=== PATIENT | female | born 1935 | race Caucasian/White ===

== ENCOUNTER 2019-08-08 10:37 | Emergency (ER) | payer MEDICARE, OTHER ==
[2019-08-08 10:50] VITALS: BP 141/77
--- NOTE | 2019-08-08 12:19 | UC ---
Skin Complaint HPI - HPI Summary HPI Summary: PT HAS BEEN ON PLAQUENIL FOR ABOUT 4 WEEKS. ABOUT 5 DAYS AGO NOTICED A RASH ON TRUNK. 2 DAYS AGO RED SPOTS ON BOTH LEGS. MILDLY ITCHY BUT NOT PAINFUL. NO SWELLING OR FEVER. NO RESPIRATORY INVOLVEMENT OR DIFFICULTY BREATHING. NO TONGUE SWELLING. STATES HER BOTTOM LIP FEELS A BIT SWOLLEN. TOOK 2 BENADRYL LAST NIGHT - NO CHANGE. - History of Current Complaint Chief Complaint: UCRash Time Seen by Provider: 08/08/19 10:43 Stated Complaint: ALLERGIC REACTION RASH Hx Obtained From: Patient Onset/Duration: Gradual Onset, Lasting Days, Still Present Timing: Constant Onset Severity: Moderate Current Severity: Moderate Pain Intensity: 0 Pain Scale Used: 0-10 Numeric Location: Diffuse Character: Redness Aggravating Factor(s): Nothing Alleviating Factor(s): Nothing Associated Signs & Symptoms: Positive: Rash. Negative: Nausea, Fever, Cough, Wheezing, Chest Pain, Hoarseness, Throat Tightening, Tenderness - Allergy/Home Medications Allergies/Adverse Reactions: Allergies Allergy/AdvReac Type Severity Reaction Status Date / Time hydroxychloroquine Allergy Rash Verified 08/08/19 10:50 [From Plaquenil] Home Medications: Home Medications Areds 1 tab PO DAILY 08/27/15 [History] Aspirin [Aspirin Low Dose] 81 mg PO DAILY 08/27/15 [History Confirmed 08/08/19] Calcium Carbonate-Cholecalcife [Calcium 600 + D 600-200 mg-Unit] 1 tab PO DAILY 08/27/15 [History Confirmed 08/08/19] Glucosamine-Chondroitin [Glucosamine & Chondroitin 500-400 mg] 1 cap PO DAILY [History Confirmed 08/08/19] Magnesium Sulfate 70 mg PO DAILY 08/27/15 [History Confirmed 08/08/19] Davey-3/Dha/Epa/Fish Oil [Fish Oil 1,000 mg Softgel] 1,000 mg PO DAILY 08/27/15 [History Confirmed 08/08/19] Tumeric 1 cap PO DAILY 08/27/15 [History Confirmed 08/08/19] Ubidecarenone [Co Q-10] 30 mg PO DAILY 08/27/15 [History Confirmed 08/08/19] Acyclovir* [Zovirax 400 MG TAB*] 400 mg PO 5ID #35 tab 08/08/19 [Rx] L.acidoph,Paracasei, B.lactis [Probiotic] 1 cap PO DAILY 08/08/19 [History Confirmed 08/08/19] PMH/Surg Hx/FS Hx/Imm Hx - Additional Past Medical History Additional PMH: RHEUMATOID ARTHRITIS - Surgical History Surgical History: Yes Surgery Procedure, Year, and Place: 3 C SECTIONS - [facility]. INGUINAL HERNIA REPAIR. Lt ARM - FX W/ PLATE. knee replacement - Family History Known Family History: Positive: None - Social History Alcohol Use: Daily Substance Use Type: None Smoking Status (MU): Never Smoked Tobacco Review of Systems All Other Systems Reviewed And Are Negative: Yes Constitutional: Positive: Negative Skin: Positive: Rash Respiratory: Positive: Negative Cardiovascular: Positive: Negative Gastrointestinal: Positive: Negative Musculoskeletal: Positive: Negative Physical Exam Triage Information Reviewed: Yes Appearance: Well-Appearing, No Pain Distress, Well-Nourished Vital Signs: Initial Vital Signs Temp 98.8 F 08/08/19 10:44 Pulse 72 08/08/19 10:44 Resp 18 08/08/19 10:44 BP 141/77 08/08/19 10:44 Pulse Ox 98 08/08/19 10:44 Vital Signs Reviewed: Yes Eyes: Positive: Conjunctiva Clear ENT: Positive: Hearing grossly normal Neck: Positive: Supple Respiratory: Positive: No respiratory distress, No accessory muscle use Cardiovascular: Positive: Pulses Normal Abdomen Description: Positive: Soft Musculoskeletal: Positive: No Edema Neurological: Positive: Alert Psychological: Positive: Age Appropriate Behavior Skin: Positive: Rashes - NON BLANCHABLE PETECHIAE BILATERAL LOWER EXTREMITIES. BLANCHABLE ERYTHEMATOUS MACULAR RASH OVER TRUNK (CHEST, ABDOMEN AND BACK) IN AN TREE DISTRIBUTION WITH 2.5CM HERALD PATCH RIGHT LOWER ABDOMEN. Course/Dx - Course Course Of Treatment: PATIENT'S PRESENTATION IS SUGGESTIVE OF 2 DIFFERENT CONDITIONS. I SUSPECT THE RASH ON HER TRUNK IS DUE TO PITYRIASIS ROSEA. ADVISED TO USE A HYPOALLERGENIC MOISTURIZER DAILY. TOPICAL STEROID CREAM IF NEEDED FOR ITCHY AREAS. ACYCLOVIR SENT TO PHARMACY. PATIENT STATES SHE MAY OR MAY NOT TAKE THIS THE RASH IS NOT THAT BOTHERSOME AT PRESENT. THE RASH ON HER LEGS IS MORE PETECHIAL IN APPEARANCE AND MAY BE A REACTION TO HER PLAQUENIL. SHE HAS ALREADY STOPPED THIS MEDICATION OF YESTERDAY. I ADVISED THAT SHE FOLLOW-UP WITH HER PRESCRIBER. OKAY TO TAKE A DAILY ANTIHISTAMINE IF THIS IS HELPFUL. FOLLOW-UP WITH PCP IN 2 WEEKS. - Diagnoses Provider Diagnosis: Pityriasis rosea, Petechiae Discharge ED - Sign-Out/Discharge Documenting (check all that apply): Patient Departure All imaging exams completed and their final reports reviewed: No Studies - Discharge Plan Condition: Stable Disposition: HOME Prescriptions: Acyclovir* [Zovirax 400 MG TAB*] 400 mg PO 5ID #35 tab Patient Education Materials: Pityriasis rosea (ED) Referrals: Doyle Judd MANAGER [employer]ING [Primary Care Provider] - 2 Weeks Additional Instructions: THE RASH ON YOUR TRUNK IS CONSISTENT IN APPEARANCE WITH PITYRIASIS ROSEA. THE RASH ON YOUR LEGS LOOKS TO BE MORE CONSISTENT WITH A PETECHIAL CONDITION POSSIBLY RELATED TO YOUR PLAQUENIL. I AGREE WITH STOPPING THIS MEDICATION AND FOLLOWING UP WITH YOUR PRESCRIBER. COMPLETE BLOOD COUNT DRAWN TODAY TO EVALUATE YOUR PLATELET AND WHITE BLOOD CELL COUNTS. REQUESTED SEDIMENTATION RATE AND CRP ALSO DRAWN. USE DAILY HYPOALLERGENIC MOISTURIZING LOTION. ACYCLOVIR SENT TO [facility]. THIS MAY EXPEDITE RESOLUTION OF THE RASH ON YOUR TRUNK. AVOID HEAT AND HOT WATER CONSIDER OTC ANTIHISTAMINE DAILY (CLARITIN (LORATADINE), ZYRTEC (CETIRIZINE)) DAILY TO COVER FOR ALLERGIC COMPONENT DO NOT SCRATCH KEEP COOL, CLEAN AND DRY OKAY TO USE TOPICAL STEROID SPARINGLY 2-3 TIMES DAILY ON ITCHY SPOTS. KEEP AWAY FROM MUCOUS MEMBRANES. GO TO THE ED WITHOUT FAIL IF YOU DEVELOP ANY RESPIRATORY INVOLVEMENT, TONGUE/ LIP SWELLING, FEVER, NAUSEA/VOMITING OR ANY OTHER CONCERNING SYMPTOMS. PITYRIASIS ROSEA: Your rash is due to pityriasis rosea. This is a harmless disease lasting about four to eight weeks. It's probably caused by a virus. There is no treatment which will decrease either the severity or the duration of the rash. The rash will gradually fade away, leaving light spots in its place. These will blend in with the normal skin over a few months. Some dermatologists recommend occasional brief sun exposure to the trunk. Pityriasis rosea does not cause fever, joint swelling, headache, or body aches. Should such symptoms develop, see your doctor for re-evaluation. Pityriasis rosea is an acute, self-limited, exanthematous skin disease felt most likely to be due to a viral etiology. - The eruption commonly begins with a "herald" or "mother" patch, a single round or oval, rather sharply delimited pink or salmon-colored lesion on the chest, neck, or back, 2 to 5 cm in diameter. A few days or a week or two later, oval lesions similar in appearance to the herald patch, but smaller, appear in crops on the trunk and proximal areas of the extremities. The long axes of these oval lesions tend to be oriented along the lines of cleavage of the skin. - A prodrome of headache, malaise, and pharyngitis may occur in a small number of cases, but except for itching, the condition is usually asymptomatic. - The diagnosis of pityriasis rosea is typically made based on the history of a herald patch and the clinical appearance of the rash. - Most patients do not require therapy. For patients with mild itching who desire therapy, we suggest treatment with medium-potency topical corticosteroids. - For patients with severe presentations resulting in a significant negative impact on quality of life, limited data suggest that oral acyclovir may be useful for shortening the course of pityriasis rosea. Phototherapy is an additional treatment option. - Billing Disposition and Condition Condition: STABLE Disposition: Home
[2019-08-08 14:26] LABS: ABS Basophils 0.1 10^3/ul (0-0.2); ABS Eosinophils 0.5 10^3/ul (0-0.6); ABS Lymphocytes 1.7 10^3/ul (1.0-4.8); ABS Monocytes 0.7 10^3/ul (0-0.8); ABS Neutrophils 4.2 10^3/ul (1.5-7.7); Eosinophil % 6.4 %; Hematocrit 38 % (35-47); Hemoglobin 12.4 g/dL (12.0-16.0); Lymphocyte % 23.8 %; Mean Corpuscular HGB Conc 33 g/dL (31-36); Mean Corpuscular Hemoglobin 27 pg (27-31); Mean Corpuscular Volume 81 fL (80-97); Nucleated Red Blood Cells % 0.1; Platelet Count 293 10^3/uL (150-450); Red Blood Count 4.66 10^6 /uL (3.70-4.87); Red Cell Distribution Width 17 % (10-15); White Blood Count 7.2 10^3/uL (3.5-10.8)
[2019-08-08 15:42] LABS: Erythrocyte Sed Rate 38 mm/Hr (0-29)
--- NOTE | 2019-08-09 08:49 | UC ---
- Progress Note Progress Note: cbc with dif reviewed sed rate and crp elevated please contact pt how is patient doing? confirm follow-up with PCP Course/Dx - Diagnoses Provider Diagnoses: Pityriasis rosea, Petechiae Discharge ED - Sign-Out/Discharge Documenting (check all that apply): Post-Discharge Follow Up All imaging exams completed and their final reports reviewed: No Studies - Discharge Plan Condition: Stable Disposition: HOME Prescriptions: Acyclovir* [Zovirax 400 MG TAB*] 400 mg PO 5ID #35 tab Patient Education Materials: Pityriasis rosea (ED) Referrals: Doyle Judd, BIOPROCESSING MANUFACTURING TECHNICIAN [Primary Care Provider] - 2 Weeks Additional Instructions: THE RASH ON YOUR TRUNK IS CONSISTENT IN APPEARANCE WITH PITYRIASIS ROSEA. THE RASH ON YOUR LEGS LOOKS TO BE MORE CONSISTENT WITH A PETECHIAL CONDITION POSSIBLY RELATED TO YOUR PLAQUENIL. I AGREE WITH STOPPING THIS MEDICATION AND FOLLOWING UP WITH YOUR PRESCRIBER. COMPLETE BLOOD COUNT DRAWN TODAY TO EVALUATE YOUR PLATELET AND WHITE BLOOD CELL COUNTS. REQUESTED SEDIMENTATION RATE AND CRP ALSO DRAWN. USE DAILY HYPOALLERGENIC MOISTURIZING LOTION. ACYCLOVIR SENT TO [facility]. THIS MAY EXPEDITE RESOLUTION OF THE RASH ON YOUR TRUNK. AVOID HEAT AND HOT WATER CONSIDER OTC ANTIHISTAMINE DAILY (CLARITIN (LORATADINE), ZYRTEC (CETIRIZINE)) DAILY TO COVER FOR ALLERGIC COMPONENT DO NOT SCRATCH KEEP COOL, CLEAN AND DRY OKAY TO USE TOPICAL STEROID SPARINGLY 2-3 TIMES DAILY ON ITCHY SPOTS. KEEP AWAY FROM MUCOUS MEMBRANES. GO TO THE ED WITHOUT FAIL IF YOU DEVELOP ANY RESPIRATORY INVOLVEMENT, TONGUE/ LIP SWELLING, FEVER, NAUSEA/VOMITING OR ANY OTHER CONCERNING SYMPTOMS. PITYRIASIS ROSEA: Your rash is due to pityriasis rosea. This is a harmless disease lasting about four to eight weeks. It's probably caused by a virus. There is no treatment which will decrease either the severity or the duration of the rash. The rash will gradually fade away, leaving light spots in its place. These will blend in with the normal skin over a few months. Some dermatologists recommend occasional brief sun exposure to the trunk. Pityriasis rosea does not cause fever, joint swelling, headache, or body aches. Should such symptoms develop, see your doctor for re-evaluation. Pityriasis rosea is an acute, self-limited, exanthematous skin disease felt most likely to be due to a viral etiology. - The eruption commonly begins with a "herald" or "mother" patch, a single round or oval, rather sharply delimited pink or salmon-colored lesion on the chest, neck, or back, 2 to 5 cm in diameter. A few days or a week or two later, oval lesions similar in appearance to the herald patch, but smaller, appear in crops on the trunk and proximal areas of the extremities. The long axes of these oval lesions tend to be oriented along the lines of cleavage of the skin. - A prodrome of headache, malaise, and pharyngitis may occur in a small number of cases, but except for itching, the condition is usually asymptomatic. - The diagnosis of pityriasis rosea is typically made based on the history of a herald patch and the clinical appearance of the rash. - Most patients do not require therapy. For patients with mild itching who desire therapy, we suggest treatment with medium-potency topical corticosteroids. - For patients with severe presentations resulting in a significant negative impact on quality of life, limited data suggest that oral acyclovir may be useful for shortening the course of pityriasis rosea. Phototherapy is an additional treatment option. - Billing Disposition and Condition Condition: STABLE Disposition: Home
== END 2019-08-08 12:20 | disposition home or self-care (01) ==
LOC: UCEAST 10:37
DX: L42 Pityriasis rosea (principal); R23.3 Spontaneous ecchymoses; M06.9 Rheumatoid arthritis, unspecified; Z96.659 Presence of unspecified artificial knee joint; Z79.82 Long term (current) use of aspirin; Z88.8 Allergy status to other drugs, medicaments and biological substances
CPT/HCPCS: 36415; 85025; 85652; 86140; 99212; G0463